=== PATIENT | male | born 1990 ===

== ENCOUNTER 2019-03-05 00:12 | Emergency (ER) | payer OTHER ==
--- NOTE | 2019-03-05 00:39 | C.PDOC ---
History Of Present Illness 28 year old male presents with new onset headache [employer]MENT [employer] while smoking, no trauma. Patient admits to marijuana use, reports some nausea but no photophobia or other associated symptoms. No Hx of migraine or recent frequent headache. <Naomy Cortes - Last Filed: 03/05/19 01:00> History Per: Patient History/Exam Limitations: no limitations Onset/Duration Of Symptoms: Mins Current Symptoms Are (Timing): Still Present Preceeding Symptoms: None Associated Symptoms: Nausea. denies: Photophobia, Blurred Vision, Vomiting, Extremity Weakness Recent travel outside of the [place]: No <Naomy Cortes - Last Filed: 03/05/19 01:00> <Mckenzie Robertson - Last Filed: 03/05/19 03:13> Time Seen by Provider: 03/05/19 00:28 Chief Complaint (Nursing): Headache Past Medical History Reviewed: Historical Data, Nursing Documentation, Vital Signs Vital Signs: Last Vital Signs Temp 98 F 03/05/19 00:14 Pulse 106 H 03/05/19 00:14 Resp 20 03/05/19 00:14 BP 146/90 03/05/19 00:14 Pulse Ox 100 03/05/19 00:14 Primary Care Provider: FAMILY PROVIDER,NO - Medical History PMH: Depression Family History: States: Unknown Family Hx - Social History Hx Alcohol Use: No Hx Substance Use: Yes - Immunization History Hx Tetanus Toxoid Vaccination: No Hx Influenza Vaccination: No Hx Pneumococcal Vaccination: No <Naomy Cortes - Last Filed: 03/05/19 01:00> Vital Signs: Last Vital Signs Temp 98.4 F 03/05/19 01:34 Pulse 90 03/05/19 01:34 Resp 18 03/05/19 01:34 BP 129/69 03/05/19 01:34 Pulse Ox 100 03/05/19 01:34 <Mckenzie Robertson - Last Filed: 03/05/19 03:13> Review Of Systems Except As Marked, All Systems Reviewed And Found Negative. Constitutional: Negative for: Fever, Chills Gastrointestinal: Positive for: Nausea Neurological: Positive for: Headache. Negative for: Other (Photophobia) <Naomy Cortes - Last Filed: 03/05/19 01:00> Physical Exam - Physical Exam Appears: Non-toxic, Other (Moderate distress, crying) Skin: Normal Color, Warm Head: Atraumatic, Normacephalic Eye(s): bilateral: Normal Inspection, PERRL, EOMI, Other (No photophobia) Oral Mucosa: Moist Neck: Normal, Supple, Other (No meningismus) Chest: Symmetrical, No Tenderness Cardiovascular: Rhythm Regular Respiratory: Normal Breath Sounds, No Rales, No Wheezing Gastrointestinal/Abdominal: Soft, No Tenderness Extremity: Normal ROM (x4) Neurological/Psych: Oriented x3, Normal Speech, Normal Motor, Normal Sensation <Naomy Cortes - Last Filed: 03/05/19 01:00> ED Course And Treatment O2 Sat by Pulse Oximetry: 100 (Room air) Pulse Ox Interpretation: Normal <Naomy Cortes - Last Filed: 03/05/19 01:00> - Laboratory Results Result Diagrams: 03/05/19 01:01 03/05/19 01:01 - CT Scan/US ct head Other Rad Studies (CT/US): Read By Radiologist, Radiology Report Reviewed CT/US Interpretation: Name:OLGA EATON Exam Date:March 05, 2019 1:19:07 AM EDT. Modality Type:CT\SR. Description:CT - BRAIN. Gender:M Laterality:Not applicable. :91 Referring Physician:Naomy Cortes (). CT SCAN OF THE BRAIN WITHOUT IV CONTRAST. CLINICAL INDICATION: Headache and dizziness. TECHNIQUE: Axial images of the brain obtained without IV contrast administration. Normal size of the ventricles and extra-axial spaces for the patient's age. Normal white matter tracts of the supratentorial brain. Normal basal ganglia and thalami. Normal brainstem. Normal cerebellum. There is no demonstrated extra-axial, intraparenchymal, or intraventricular hemorrhage. There are no findings of an a cute ischemic infarction. Normal calvarium. There is no demonstrated fracture. Normal soft tissue structures. Normal visualized paranasal sinuses. IMPRESSION: Normal unenhanced CT scan of the brain. . Electronically signed on March 05, 2019 3:04:15 AM EDT by: Vishnu العراقي M.D., Certified by ABR, MSK, Neuroradiology Reevaluation Time: 03:15 Reassessment Condition: Improved (Patient sleeping comfortably, states heachache is much improved. Ct head neg. Patient is comfortable being discharged home, Rx for Fiorecet given. Patient instructed to follow up with PMD/clinic in 1-2 days, and he understands he should return to [facility] if symptoms worsen.) <Mckenzie Robertson - Last Filed: 03/05/19 03:13> Medical Decision Making Medical Decision Making: Plan: * CT head * Blood work * Decadron * Mag sulfate * Reglan * Tylenol * IV fluids <Naomy Cortes - Last Filed: 03/05/19 01:00> Disposition Counseled Patient/Family Regarding: Studies Performed, Diagnosis - Disposition Disposition Time: 01:00 <Naomy Cortes Filed: 03/05/19 01:00> Counseled Patient/Family Regarding: Diagnosis, Need For Followup, Rx Given - Disposition Disposition Time: 03:15 <Mckenzie Robertson - Last Filed: 03/05/19 03:13> - Disposition Referrals: at [facility] [Outside] Condition: STABLE Prescriptions: Acetaminophen/Butalbital/Caf [Fioricet] 1 tab PO TID PRN #20 tab PRN Reason: Headache Instructions: Headache, Adult (DC) Forms: [employer] (Bengali) Print Language: INDONESIAN - Clinical Impression Clinical Impression: Headache, Nausea alone - Scribe Statement The provider has reviewed the documentation as recorded by the Scribe Lai Kim All medical record entries made by the Scribe were at my direction and per sonally dictated by me. I have reviewed the chart and agree that the record accurately reflects my personal performance of the history, physical exam, medical decision making, and the department course for this patient. I have also personally directed, reviewed, and agree with the discharge instructions and disposition. <Naomy Cortes - Last Filed: 03/05/19 01:00> Physician Patient Turnover Patient Signed Over To: Mckenzie Robertson Handoff Comments: FU LABS, CT, DISPO <Naomy Cortes - Last Filed: 03/05/19 01:00>
[2019-03-05] MEDS ORDERED: Sodium Chloride 0.9% 1,000 ML IV STA (00:40)
[2019-03-05] MEDS ORDERED: Magnesium Sulfate 1 gm in D5W 1 GM/100 ML BAG IVPB STA (00:40)
[2019-03-05] MEDS ORDERED: Dexamethasone 4 mg/1 ml IVP STA (00:40)
[2019-03-05] MEDS ORDERED: Magnesium Sulfate 1 gm in D5W 1 GM/100 ML BAG IVPB ONE (00:53)
[2019-03-05 01:13] LABS: BASO % 0.5 % (0.0-2.0); EOS # 0.1 K/uL (0.0-0.7); HEMOGLOBIN 15.3 g/dL (12.0-18.0); LYMPH # 3.6 K/uL (1.0-4.3); LYMPH % 52.7 % (20.0-40.0); MEAN CELL VOLUME 93.1 fL (80.0-94.0); MEAN CORPUSCULAR HEMOGLOBIN 31.3 pg (27.0-31.0); MEAN CORPUSCULAR HGB CONC 33.6 g/dL (33.0-37.0); MEAN PLATELET VOLUME 8.9 fL (7.2-11.7); MONO # 0.5 K/uL (0.0-0.8); MONO % 7.1 % (0.0-10.0); NEUT # 2.6 K/uL (1.8-7.0); NEUT % 37.7 % (50.0-75.0); RBC 4.9 Mil/uL (4.40-5.90); RED CELL DISTRIBUTION WIDTH 13.5 % (11.5-14.5); WHITE BLOOD COUNT 6.8 K/uL (4.8-10.8)
[2019-03-05 01:28] LABS: BLOOD UREA NITROGEN 16 mg/dL (9-20); CALCIUM 9.6 mg/dl (8.6-10.4); GFR NON-AFRICAN AMERICAN > 60
[2019-03-05 01:35] VITALS: RESP 18
[2019-03-05 03:24] VITALS: BP 121/63; PULSE 80; TEMP 80; O2SAT 96
--- NOTE | 2019-03-05 09:14 | CT ---
Date of service: 03/05/2019 PROCEDURE: CT HEAD WITHOUT CONTRAST. HISTORY: Headache COMPARISON: None available. TECHNIQUE: Axial computed tomography images were obtained through the head/brain without intravenous contrast. Radiation dose: Total exam DLP = 1093.94 mGy-cm. This CT exam was performed using one or more of the following dose reduction techniques: Automated exposure control, adjustment of the mA and/or kV according to patient size, and/or use of iterative reconstruction technique. FINDINGS: HEMORRHAGE: No acute parenchymal, subarachnoid nor extra-axial hemorrhage. BRAIN: No mass effect or edema. No atrophy or chronic microvascular ischemic changes. VENTRICLES: Unremarkable. No hydrocephalus. CALVARIUM: Unremarkable. PARANASAL SINUSES: Unremarkable as visualized. No significant inflammatory changes. MASTOID AIR CELLS: Unremarkable as visualized. No inflammatory changes. OTHER FINDINGS: None. IMPRESSION: No acute intracranial hemorrhage.
== END 2019-03-05 03:24 | disposition home or self-care (01) ==
LOC: C.ER 00:12
DX: R51 Headache (principal); R11.0 Nausea
CPT/HCPCS: 70450; 80048; 85025; 96365; 96375; 99285; J1100; J2765; J3475; J7030